=== PATIENT | male | born 1975 | race Caucasian/White ===

== ENCOUNTER 2022-02-05 22:23 | Observation (INO) | payer OTHER ==
[2022-02-05] MEDS ORDERED: Sodium Chloride 0.9% 10 ML Syringe FLUSH PRN (22:44)
[2022-02-05] MEDS ORDERED: Sodium Chloride 0.9% 2.5 ML Syringe FLUSH PRN (22:44)
[2022-02-05] MEDS ORDERED: Morphine 4 MG/ML VIAL IVPUSH ONE (22:45)
[2022-02-05] MEDS ORDERED: Ondansetron 4 MG/2 ML SDV IVPUSH ONE (22:45)
[2022-02-05 23:33] LABS: CARBON DIOXIDE,CO2 27.8 mmol/L (21.0-32.0); POTASSIUM,K 3.6 mmol/L (3.5-5.1)
[2022-02-05] MEDS ORDERED: Iopamidol 755 MG/ML 500 ML Multipack Bottle IVPUSH ONE (23:49)
[2022-02-06] MEDS ORDERED: cefOXitin 2 GM in Sodium Chloride 0.9% 50 ML IV ONE (01:05)
[2022-02-06] MEDS ORDERED: Lactated Ringers 1,000 ML IV STA (01:07)
[2022-02-06] MEDS ORDERED: Morphine 4 MG/ML VIAL IVPUSH PRN (01:33)
[2022-02-06] MEDS ORDERED: Albuterol 0.083% 2.5 MG/3 ML Neb Soln NEB PRN (08:57)
[2022-02-06] MEDS ORDERED: Naloxone 0.4 MG/ML SDV IVPUSH PRN (08:57)
[2022-02-06] MEDS ORDERED: Ondansetron 4 MG/2 ML SDV IVPUSH PRN ×2 (08:57→11:27)
[2022-02-06] MEDS ORDERED: fentaNYL 50 MCG/ML SDV IVPUSH PRN (08:57)
[2022-02-06] MEDS ORDERED: Metoclopramide 10 MG/2 ML SDV IVPUSH PRN (08:57)
[2022-02-06] MEDS ORDERED: HYDROmorphone 1 MG/ML Syringe IVPUSH PRN (08:57)
[2022-02-06] MEDS ORDERED: Propofol 200 MG/20 ML SDV ONE (09:01)
[2022-02-06] MEDS ORDERED: fentaNYL 250 MCG/5 ML SDV ONE (09:01)
[2022-02-06] MEDS ORDERED: Bupivacaine 0.5% 30 ML SDV ONE (09:16)
[2022-02-06] MEDS ORDERED: ceFAZolin 1 GM Vial ONE (09:16)
[2022-02-06] MEDS ORDERED: Octyl 2-Cyanoacrylate 1 Tube ONE (09:17)
[2022-02-06] MEDS ORDERED: cefOXitin 1 GM in Premix Bag 1 BAG IV SCH (10:00)
[2022-02-06] MEDS ORDERED: Sugammadex Sodium 200 MG/2 ML VIAL ONE (11:08)
[2022-02-06] MEDS ORDERED: Ondansetron 4 MG/2 ML SDV ONE (11:08)
[2022-02-06] MEDS ORDERED: Dexamethasone 4 MG/ML 5 ML MDV ONE (11:08)
[2022-02-06] MEDS ORDERED: Ketorolac 30 MG/ML SDV ONE (11:08)
[2022-02-06] MEDS ORDERED: Glycopyrrolate 0.2 MG/ML SDV ONE (11:08)
[2022-02-06] MEDS ORDERED: Rocuronium 100 MG/10 ML MDV ONE (11:08)
[2022-02-06] MEDS: Lactated Ringers 1,000 ML IV SCH ×2 (13:55→20:42)
[2022-02-06] MEDS: Acetaminophen/HYDROcodone 325-5 MG Tab PO PRN ×2 (13:57→20:29)
[2022-02-06] MEDS: cefOXitin 1 GM in Premix Bag 1 BAG IV SCH ×2 (15:34→20:24)
[2022-02-06] MEDS: Pantoprazole 40 MG Tab.CR PO SCH ×2 (15:34→18:24)
[2022-02-06] MEDS ORDERED: traMADol 50 MG Tab PO ONE (18:21)
[2022-02-07] MEDS: Acetaminophen/HYDROcodone 325-5 MG Tab PO PRN ×2 (03:09→10:08)
[2022-02-07] MEDS: cefOXitin 1 GM in Premix Bag 1 BAG IV SCH (03:11)
[2022-02-07] MEDS: Lactated Ringers 1,000 ML IV SCH (03:20)
[2022-02-07] MEDS: Pantoprazole 40 MG Tab.CR PO SCH (06:34)
== END 2022-02-07 10:15 | disposition home or self-care (01) ==
LOC: MW.ED 22:23 → MW.MS 02-06 01:27
PROVIDERS: ADMIT Surgery; ATTEND Surgery
DX: K35.30 Acute appendicitis with localized peritonitis, without perforation or gangrene (principal); Z01.812 Encounter for preprocedural laboratory examination; Z20.822 Contact with and (suspected) exposure to COVID-19; Z88.2 Allergy status to sulfonamides
CPT/HCPCS: 36415; 44970; 74177; 80053; 83690; 85025; 87635; 96365; 96375; 99285; A9270; J0690; J0694; J1100; J1885; J2270; J2405; J2704; J3010; J3490; J7030; J7120; Q9967; 99284; U0002

== ENCOUNTER 2022-09-11 17:40 | Emergency (ER) | payer SELFPAY ==
[2022-09-11] MEDS ORDERED: Sodium Chloride 0.9% 10 ML Syringe FLUSH PRN (18:03)
[2022-09-11] MEDS ORDERED: Sodium Chloride 0.9% 2.5 ML Syringe FLUSH PRN (18:03)
[2022-09-11 18:59] LABS: CARBON DIOXIDE,CO2 24.5 mmol/L (21.0-32.0); POTASSIUM,K 4.1 mmol/L (3.5-5.1)
[2022-09-11] MEDS ORDERED: Sodium Chloride 0.9% 1,000 ML IV ONE (19:04)
[2022-09-11] MEDS ORDERED: Iopamidol 755 MG/ML 500 ML Multipack Bottle IVPUSH ONE (19:22)
== END 2022-09-11 20:11 | disposition home or self-care (01) ==
LOC: MW.ED 17:40
DX: K92.2 Gastrointestinal hemorrhage, unspecified (principal); Z88.2 Allergy status to sulfonamides; Z79.899 Other long term (current) drug therapy; Z79.01 Long term (current) use of anticoagulants; Z86.16 Personal history of COVID-19
CPT/HCPCS: 36415; 74177; 80053; 82947; 83605; 83735; 84484; 85025; 93005; 96360; 99285; J3490; J7030; Q9967

== ENCOUNTER 2022-12-16 18:00 | Emergency (ER) | payer SELFPAY ==
[2022-12-16] MEDS ORDERED: Pantoprazole 40 MG Tab.CR PO STA (19:34)
== END 2022-12-16 20:04 | disposition home or self-care (01) ==
LOC: MW.ED 18:00
DX: R10.84 Generalized abdominal pain (principal); R10.12 Left upper quadrant pain; K21.9 Gastro-esophageal reflux disease without esophagitis; Z88.1 Allergy status to other antibiotic agents; Z86.16 Personal history of COVID-19; Z79.899 Other long term (current) drug therapy
CPT/HCPCS: 99283; A9270